=== PATIENT | male | born 1955 | race Caucasian/White ===

== ENCOUNTER 2018-05-18 07:36 | Day surgery (SDC) | payer OTHER ==
[~2018-05-18] VITALS: Ht 177.8 cm; Wt 85.3 kg
[2018-05-18] MEDS ORDERED: fentaNYL 0.05 MG/ML VIAL ONE (08:58)
[2018-05-18] MEDS ORDERED: MIDAZOLAM 2 MG/2 ML VIAL ONE (08:58)
== END 2018-05-18 09:57 | disposition home or self-care (01) ==
LOC: MDS 07:36 → MMU 07:43 → MDS 09:57
PROVIDERS: ATTEND Internal Medicine Gastroenterology
DX: K29.50 Unspecified chronic gastritis without bleeding (principal); K31.9 Disease of stomach and duodenum, unspecified; K70.9 Alcoholic liver disease, unspecified; I10 Essential (primary) hypertension; F41.9 Anxiety disorder, unspecified; F32.9 Major depressive disorder, single episode, unspecified; E66.3 Overweight; Z68.27 Body mass index [BMI] 27.0-27.9, adult; F17.210 Nicotine dependence, cigarettes, uncomplicated; Z79.899 Other long term (current) drug therapy
CPT/HCPCS: 36415; 43235; 86677; J2250; J7030; J3010